=== PATIENT | female | born 1935 | race Caucasian/White ===

== ENCOUNTER 2018-03-26 03:18 | Inpatient (IN) | payer MEDICARE, OTHER ==
[2018-03-26 04:23] LABS: ADD MAN DIFF? NO
[2018-03-26] MEDS: ONDANSETRON 4 MG INJ IV (04:25)
[2018-03-26] MEDS: SODIUM CHLORIDE 0.9% 1L BAG IV* (04:25)
[2018-03-26] MEDS: CEFEPIME 2GM/50 ML (PMX) 50 ML IVPB (04:25)
[2018-03-26 04:27] LABS: WHITE BLOOD COUNT 13.8 10^3/ul (4.8-10.8)
[2018-03-26 04:27] LABS: BASOPHILS % 0.1 % (0.0-2.0); HEMATOCRIT 41.3 % (37.0-47.0); HEMOGLOBIN 13.7 g/dl (12.0-16.0); LYMPHOCYTES # 0.8 10^3/ul (0.8-2.9); LYMPHOCYTES % 5.8 % (15.0-51.0); MEAN CORPUSCULAR HGB CONC 33.2 g/dl (32.0-37.0); MEAN CORPUSCULAR VOLUME 87.3 fl (82.0-101.0); MEAN PLATELET VOLUME 9.7 fl (7.4-10.4); MONOCYTE # 0.8 10^3/ul (0.3-0.9); MONOCYTES % 5.5 % (0.0-11.0); NEUTROPHIL # 12.2 10^3/ul (1.6-7.5); PLATELET COUNT 174 10^3/UL (140-415); RED BLOOD COUNT 4.73 10^6/ul (4.20-5.40); RED CELL DISTRIBUTION WIDTH 12.8 % (11.5-14.5)
[2018-03-26 04:41] LABS: LACTIC ACID 1.4 mmol/L (0.5-2.0)
[2018-03-26 04:44] LABS: ALANINE AMINOTRANSFERASE 75 IU/L (13-69); ALBUMIN 4.1 g/dl (3.3-4.9); ALBUMIN/GLOBULIN RATIO 1.13; ALKALINE PHOSPHATASE 86 IU/L (42-121); ANION GAP 17 (8-16); ASPARTATE AMINO TRANSFERASE 92 IU/L (15-46); BILIRUBIN,INDIRECT 0.9 mg/dl (0-1.1); BILIRUBIN,TOTAL 0.9 mg/dl (0.2-1.3); BLOOD UREA NITROGEN 18 mg/dl (7-20); CALCIUM 9.3 mg/dl (8.4-10.2); CARBON DIOXIDE 24 mmol/L (21-31); CHLORIDE 105 mmol/L (97-110); CREATININE 0.69 mg/dl (0.44-1.00); GLUCOSE 182 mg/dl (70-220); POTASSIUM 3.8 mmol/L (3.5-5.1); SODIUM 142 mmol/L (135-144); TOTAL PROTEIN 7.7 g/dl (6.1-8.1)
[2018-03-26 04:45] LABS: INR 1.22; PROTIME 15.6 Sec (11.9-14.9); PT RATIO 1.2
[2018-03-26 04:46] LABS: PARTIAL THROMBOPLASTIN TIME 32.3 Sec (25.0-35.0)
[2018-03-26 04:57] LABS: URINE PH (Dip) POC 5.5 (5.0-8.5)
[2018-03-26 04:57] LABS: URINE BLOOD (Dip) POC 2+ (NEGATIVE); URINE GLUCOSE (Dip) POC Negative (NEGATIVE); URINE KETONES (Dip) POC 2+ (NEGATIVE); URINE LEUKOCYTE EST (Dip) POC Negative (NEGATIVE); URINE NITRITE (Dip) POC Negative (NEGATIVE); URINE TOTAL PROTEIN POC 3+ (NEGATIVE)
[2018-03-26] MEDS ORDERED: HEPARIN 25000 UNITS/250 ML 250 ML IV (05:13)
[2018-03-26] MEDS ORDERED: HEPARIN 1000 UNITS/ML 10 ML INJ IV (05:13)
[2018-03-26] MEDS ORDERED: ONDANSETRON 4 MG INJ IV (05:30)
[2018-03-26] MEDS ORDERED: NACL 0.9% 3 ML SYG IV (05:30)
[2018-03-26] MEDS ORDERED: DOCUSATE SODIUM 100 MG CAP PO (05:30)
[2018-03-26] MEDS: PANTOPRAZOLE (EC) 40 MG TAB PO ×2 (05:53→05:54)
[2018-03-26] MEDS: ASPIRIN 81 MG TAB PO ×3 (05:54→21:07)
[2018-03-26 05:55] LABS: LACTIC ACID 1.4 mmol/L (0.5-2.0)
[2018-03-26] MEDS: SOD CHLORIDE 0.9% 1,000 ML IV (05:56)
[2018-03-26] MEDS: ENOXAPARIN 100 MG/ML SYG SC ×2 (06:10→21:09)
[2018-03-26 06:18] LABS: ADD UMIC YES; UR ASCORBIC ACID NEGATIVE (NEGATIVE); UR BACTERIA FEW /HPF (NONE SEEN); UR BILIRUBIN (Dip) NEGATIVE (NEGATIVE); UR BLOOD (Dip) 1+ mg/dL (NEGATIVE); UR CLARITY CLEAR (CLEAR); UR COLOR YELLOW (YELLOW); UR GLUCOSE (Dip) 1+ mg/dL (NEGATIVE); UR KETONES (Dip) 1+ mg/dL (NEGATIVE); UR LEUKOCYTE ESTERASE (Dip) NEGATIVE Leu/ul (NEGATIVE); UR MUCUS FEW /HPF (NONE SEEN); UR NITRITE (Dip) NEGATIVE (NEGATIVE); UR RBC 0 /HPF (0-5); UR SPECIFIC GRAVITY (Dip) 1.021 (1.003-1.030); UR TOTAL PROTEIN (Dip) 2+ mg/dl (NEGATIVE); UR UROBILINOGEN (Dip) NEGATIVE (NEGATIVE); UR WBC 2 /HPF (0-5)
[2018-03-26 07:37] LABS: LACTIC ACID 1.4 mmol/L (0.5-2.0)
[2018-03-26] MEDS: morphine 4 MG/ML VIAL IV (07:38)
[2018-03-26] MEDS: ACETAMINOPHEN 325 MG TAB PO ×2 (08:28→23:14)
[2018-03-26] MEDS ORDERED: ASPIRIN 81 MG TAB PO (09:00)
[2018-03-26] MEDS ORDERED: ENOXAPARIN 100 MG/ML SYG SC (09:00)
[2018-03-26] MEDS: METOPROLOL 25 MG TAB PO ×2 (10:39→21:00)
[2018-03-26] MEDS: IBUPROFEN 600 MG TAB PO (10:46)
[2018-03-26 11:08] LABS: CREATINE KINASE 182 IU/L (23-200)
[2018-03-26 11:18] LABS: CK INDEX 2.5; CK-MB 4.64 ng/ml (0.0-2.4)
[2018-03-26] MEDS: CEFEPIME 1GM/50 ML (PMX) 50 ML IV ×2 (13:08→21:06)
[2018-03-26] MEDS: SOD CHLORIDE 0.9% 500 ML IV (15:26)
[2018-03-26] MEDS: ATORVASTATIN 40 MG TAB PO (21:06)
[2018-03-27] MEDS: PANTOPRAZOLE (EC) 40 MG TAB PO (06:58)
[2018-03-27 07:46] LABS: WHITE BLOOD COUNT 14.6 10^3/ul (4.8-10.8)
[2018-03-27 07:46] LABS: ABNORMAL IP MESSAGE 1; HEMATOCRIT 35.2 % (37.0-47.0); HEMOGLOBIN 11.4 g/dl (12.0-16.0); MEAN CORPUSCULAR HEMOGLOBIN 29.3 pg (29.0-33.0); MEAN CORPUSCULAR HGB CONC 32.4 g/dl (32.0-37.0); MEAN CORPUSCULAR VOLUME 90.5 fl (82.0-101.0); MEAN PLATELET VOLUME 10.6 fl (7.4-10.4); RED BLOOD COUNT 3.89 10^6/ul (4.20-5.40); RED CELL DISTRIBUTION WIDTH 13.2 % (11.5-14.5)
[2018-03-27 07:55] LABS: PLATELET COUNT 127 10^3/UL (140-415); POSITIVE DIFF @See below
[2018-03-27 07:56] LABS: ADD MAN DIFF? YES
[2018-03-27 08:02] LABS: HEMOGLOBIN A1C 5.4 % (0-5.9)
[2018-03-27 08:02] LABS: ANION GAP 10 (8-16); BLOOD UREA NITROGEN 23 mg/dl (7-20); CALCIUM 8.2 mg/dl (8.4-10.2); CARBON DIOXIDE 26 mmol/L (21-31); CHLORIDE 109 mmol/L (97-110); CHOL/HDL RATIO 3.4 RATIO; CHOLESTEROL 136 mg/dl (100-200); CREATININE 0.91 mg/dl (0.44-1.00); GLUCOSE 126 mg/dl (70-220); HDL CHOLESTEROL 39 mg/dl (33-92); LDL CHOLESTEROL,CALCULATED 84 mg/dl; MAGNESIUM 1.9 mg/dl (1.7-2.5); POTASSIUM 4.2 mmol/L (3.5-5.1); SODIUM 141 mmol/L (135-144); TRIGLYCERIDES 66 mg/dl (0-149)
[2018-03-27 08:09] LABS: CREATINE KINASE 187 IU/L (23-200)
[2018-03-27] MEDS: CEFEPIME 1GM/50 ML (PMX) 50 ML IV ×2 (08:44→20:21)
[2018-03-27] MEDS: ENOXAPARIN 100 MG/ML SYG SC (08:45)
[2018-03-27] MEDS: METOPROLOL 25 MG TAB PO ×2 (09:00→20:22)
[2018-03-27 09:25] LABS: FREE T4 (FREE THYROXINE) 1.33 ng/dl (0.85-1.93)
[2018-03-27 10:41] LABS: ANISOCYTOSIS 2+ (0-0); BAND NEUTROPHILS #M 6.1 10^3/ul (0.0-0.6); BAND NEUTROPHILS % (M) 42 % (0-4); GIANT THROMBO% (M) 1 % (0-0); LYMPHOCYTES #M 1.3 10^3/ul (0.8-2.9); LYMPHOCYTES % (M) 9 % (15-51); MICROCYTOSIS 2+ (0-0); MONOCYTE #M 0.4 10^3/ul (0.3-0.9); MONOCYTES % (M) 3 % (0-11); PLATELET ESTIMATE DECREASED; POIKILOCYTOSIS 1+ (0-0); POLYCHROMASIA 3+ (0-0); SEG NEUT #M 7.6 10^3/ul (1.6-7.5); SEGMENTED NEUTROPHILS (M) % 46 % (39-77); SMUDGE%M 2 % (0-0)
[2018-03-27] MEDS: ACETAMINOPHEN 325 MG TAB PO ×2 (10:50→19:41)
[2018-03-27] MEDS ORDERED: IBUPROFEN 600 MG TAB PO (11:00)
[2018-03-27] MEDS: morphine 2 MG INJ IV (17:19)
[2018-03-27] MEDS ORDERED: HYDROmorphONE 0.5 MG/0.5 ML SYG IV (17:33)
[2018-03-27] MEDS: ASPIRIN 81 MG TAB PO (20:22)
[2018-03-27] MEDS: ATORVASTATIN 40 MG TAB PO (20:22)
[2018-03-27] MEDS: DEXTROSE 5%-0.45% NACL 1,000 ML IV (21:26)
[2018-03-27 21:56] LABS: LIPASE 29 U/L (23-300)
[2018-03-28] MEDS: PANTOPRAZOLE (EC) 40 MG TAB PO (05:45)
[2018-03-28] MEDS: METOPROLOL 25 MG TAB PO ×3 (08:26→21:00)
[2018-03-28] MEDS: CEFEPIME 1GM/50 ML (PMX) 50 ML IV ×2 (08:27→20:31)
[2018-03-28 08:37] LABS: HEMATOCRIT 34.1 % (37.0-47.0); HEMOGLOBIN 11.2 g/dl (12.0-16.0); MEAN CORPUSCULAR HEMOGLOBIN 29.3 pg (29.0-33.0); MEAN CORPUSCULAR HGB CONC 32.8 g/dl (32.0-37.0); MEAN CORPUSCULAR VOLUME 89.3 fl (82.0-101.0); MEAN PLATELET VOLUME 11.1 fl (7.4-10.4); PLATELET COUNT 118 10^3/UL (140-415); RED BLOOD COUNT 3.82 10^6/ul (4.20-5.40)
[2018-03-28 08:37] LABS: WHITE BLOOD COUNT 10.5 10^3/ul (4.8-10.8)
[2018-03-28 08:39] LABS: POSITIVE DIFF @See below
[2018-03-28 08:40] LABS: ADD MAN DIFF? YES
[2018-03-28 09:09] LABS: ANION GAP 8 (8-16); BLOOD UREA NITROGEN 20 mg/dl (7-20); CALCIUM 8.4 mg/dl (8.4-10.2); CARBON DIOXIDE 29 mmol/L (21-31); CHLORIDE 107 mmol/L (97-110); GLUCOSE 153 mg/dl (70-220); POTASSIUM 3.8 mmol/L (3.5-5.1); SODIUM 140 mmol/L (135-144)
[2018-03-28 10:03] LABS: BAND NEUTROPHILS #M 2.2 10^3/ul (0.0-0.6); BAND NEUTROPHILS % (M) 21 % (0-4); LYMPHOCYTES #M 1.9 10^3/ul (0.8-2.9); LYMPHOCYTES % (M) 19 % (15-51); MONOCYTE #M 0.2 10^3/ul (0.3-0.9); MONOCYTES % (M) 2 % (0-11); PLATELET ESTIMATE DECREASED; REACTIVE LYMPHOCYTES #M 0.3 10^3/ul (0.0-0.0); REACTIVE LYMPHOCYTES% (M) 3 % (0-0); SEGMENTED NEUTROPHILS (M) % 55 % (39-77); SMUDGE%M 6 % (0-0)
[2018-03-28] MEDS ORDERED: FENTAnyl 50 MCG/ML VIAL (13:19)
[2018-03-28] MEDS ORDERED: MIDAZOLAM 1 MG/ML 2 ML INJ (13:19)
[2018-03-28] MEDS ORDERED: LIDOCAINE 1% (MDV) 20 ML INJ (13:19)
[2018-03-28] MEDS ORDERED: IOHEXOL 350MG/ML 50 ML BTL (13:50)
[2018-03-28] MEDS ORDERED: IODIXANOL LOCM 100 ML BTL (13:50)
[2018-03-28] MEDS ORDERED: BIVALIRUDIN 250MG /NS 50 ML 50 ML IVPB (13:50)
[2018-03-28] MEDS ORDERED: ASPIRIN 325 MG TAB (13:52)
[2018-03-28] MEDS ORDERED: CLOPIDOGREL 300 MG TAB (13:53)
[2018-03-28] MEDS: SOD CHLORIDE 0.9% 100 ML (16:53)
[2018-03-28] MEDS: IODIXANOL LOCM 100 ML BTL (16:53)
[2018-03-28] MEDS ORDERED: IOHEXOL 14.3 MG(I)/ML (ADULT) BTL PO (17:30)
[2018-03-28] MEDS: ATORVASTATIN 40 MG TAB PO (20:31)
[2018-03-28] MEDS: ASPIRIN 81 MG TAB PO (20:31)
[2018-03-29] MEDS: ACETAMINOPHEN 325 MG TAB PO ×3 (06:10→20:20)
[2018-03-29] MEDS: PANTOPRAZOLE (EC) 40 MG TAB PO (06:11)
[2018-03-29] MEDS: CEFEPIME 1GM/50 ML (PMX) 50 ML IV ×2 (08:21→20:22)
[2018-03-29] MEDS: CLOPIDOGREL 75 MG TAB PO (08:21)
[2018-03-29] MEDS: METOPROLOL 25 MG TAB PO ×2 (08:22→20:20)
[2018-03-29 08:52] LABS: ADD MAN DIFF? NO
[2018-03-29 09:02] LABS: WHITE BLOOD COUNT 8.8 10^3/ul (4.8-10.8)
[2018-03-29 09:02] LABS: BASOPHILS % 0.1 % (0.0-2.0); EOSINOPHILS % 0.2 % (0.0-7.0); HEMATOCRIT 32.6 % (37.0-47.0); LYMPHOCYTES # 1.2 10^3/ul (0.8-2.9); LYMPHOCYTES % 13.1 % (15.0-51.0); MEAN CORPUSCULAR HEMOGLOBIN 29.4 pg (29.0-33.0); MEAN CORPUSCULAR HGB CONC 33.7 g/dl (32.0-37.0); MEAN CORPUSCULAR VOLUME 87.2 fl (82.0-101.0); MEAN PLATELET VOLUME 10.9 fl (7.4-10.4); MONOCYTE # 0.7 10^3/ul (0.3-0.9); MONOCYTES % 7.6 % (0.0-11.0); NEUTROPHIL # 6.9 10^3/ul (1.6-7.5); NEUTROPHILS % 78.7 % (39.0-77.0); PLATELET COUNT 122 10^3/UL (140-415); RED BLOOD COUNT 3.74 10^6/ul (4.20-5.40)
[2018-03-29 09:48] LABS: ANION GAP 8 (8-16); BLOOD UREA NITROGEN 15 mg/dl (7-20); CALCIUM 8.3 mg/dl (8.4-10.2); CARBON DIOXIDE 29 mmol/L (21-31); CHLORIDE 107 mmol/L (97-110); CREATININE 0.54 mg/dl (0.44-1.00); GLUCOSE 126 mg/dl (70-220); POTASSIUM 3.4 mmol/L (3.5-5.1); SODIUM 141 mmol/L (135-144)
[2018-03-29] MEDS: POTASSIUM CHLORIDE (SR) 20 MEQ TAB PO (11:49)
[2018-03-29] MEDS: metroNIDAZOLE 500 MG/NS (PMX) 100 ML IVPB ×2 (14:27→22:35)
[2018-03-29] MEDS: HYDROCODONE/APAP (5/325) TAB PO (14:48)
[2018-03-29] MEDS ORDERED: morphine 2 MG INJ IV (15:00)
[2018-03-29] MEDS: ATORVASTATIN 40 MG TAB PO (20:16)
[2018-03-29] MEDS: ASPIRIN 81 MG TAB PO (20:26)
[2018-03-30] MEDS: HYDROCODONE/APAP (5/325) TAB PO ×2 (02:21→18:47)
[2018-03-30] MEDS: metroNIDAZOLE 500 MG/NS (PMX) 100 ML IVPB ×2 (06:29→14:47)
[2018-03-30] MEDS: PANTOPRAZOLE (EC) 40 MG TAB PO (06:29)
[2018-03-30 08:43] LABS: ADD MAN DIFF? NO
[2018-03-30 08:51] LABS: WHITE BLOOD COUNT 9.2 10^3/ul (4.8-10.8)
[2018-03-30 08:51] LABS: BASOPHILS % 0.2 % (0.0-2.0); EOSINOPHILS % 0.2 % (0.0-7.0); HEMATOCRIT 31.4 % (37.0-47.0); HEMOGLOBIN 10.7 g/dl (12.0-16.0); LYMPHOCYTES % 10.7 % (15.0-51.0); MEAN CORPUSCULAR HEMOGLOBIN 29.2 pg (29.0-33.0); MEAN CORPUSCULAR HGB CONC 34.1 g/dl (32.0-37.0); MEAN CORPUSCULAR VOLUME 85.6 fl (82.0-101.0); MONOCYTE # 0.6 10^3/ul (0.3-0.9); MONOCYTES % 6.6 % (0.0-11.0); NEUTROPHIL # 7.5 10^3/ul (1.6-7.5); NEUTROPHILS % 81.6 % (39.0-77.0); PLATELET COUNT 143 10^3/UL (140-415); RED BLOOD COUNT 3.67 10^6/ul (4.20-5.40); RED CELL DISTRIBUTION WIDTH 13.1 % (11.5-14.5)
[2018-03-30] MEDS: CLOPIDOGREL 75 MG TAB PO (09:00)
[2018-03-30] MEDS: METOPROLOL 25 MG TAB PO (09:12)
[2018-03-30 09:13] LABS: ANION GAP 8 (8-16); BLOOD UREA NITROGEN 15 mg/dl (7-20); CALCIUM 8.2 mg/dl (8.4-10.2); CARBON DIOXIDE 28 mmol/L (21-31); CHLORIDE 106 mmol/L (97-110); CREATININE 0.52 mg/dl (0.44-1.00); GLUCOSE 116 mg/dl (70-220); POTASSIUM 3.5 mmol/L (3.5-5.1); SODIUM 138 mmol/L (135-144)
[2018-03-30] MEDS: CEFEPIME 1GM/50 ML (PMX) 50 ML IV (09:13)
[2018-03-30] MEDS: ACETAMINOPHEN 325 MG TAB PO ×2 (09:13→16:26)
[2018-03-30] MEDS: DEXTROSE 5%-0.45% NACL 1,000 ML IV (11:51)
== END 2018-03-30 19:22 | disposition left against medical advice (07) | DRG 853 ==
LOC: E/R 03:18 → TEL 03-27 12:59
PROC: 027034Z Dilation of Coronary Artery, One Artery with Drug-eluting Intraluminal Device, Percutaneous Approach (ICD-10-PCS; principal; 2018-03-28 13:00)
PROC: 4A023N7 Measurement of Cardiac Sampling and Pressure, Left Heart, Percutaneous Approach (ICD-10-PCS; 2018-03-28 13:00)
PROC: B211YZZ Fluoroscopy of Multiple Coronary Arteries using Other Contrast (ICD-10-PCS; 2018-03-28 13:00)
DX: A41.50 Gram-negative sepsis, unspecified (principal); J18.9 Pneumonia, unspecified organism; K75.0 Abscess of liver; G93.49 Other encephalopathy; I21.4 Non-ST elevation (NSTEMI) myocardial infarction; N39.0 Urinary tract infection, site not specified; M25.561 Pain in right knee; I10 Essential (primary) hypertension; I35.0 Nonrheumatic aortic (valve) stenosis; I25.10 Atherosclerotic heart disease of native coronary artery without angina pectoris
CPT/HCPCS: 71045; 73562; 74177; 76705; 80048; 80053; 80061; 81001; 81003; 82550; 82553; 82962; 83036; 83605; 83690; 83735; 84439; 84443; 84484; 85025; 85610; 85730; 87040; 87086; 93005; 93306; 93458; 96372; 96374; 96375; 96376; 97162; 97165; 99291-25